=== PATIENT | female | born 1995 | race Two or more races ===

== ENCOUNTER 2022-01-25 19:03 | Outpatient (CLI) | payer OTHER ==
[2022-01-26] MEDS ORDERED: PRENATAL CAPLE1 EAC1 PO (22:24)
== END 2022-01-25 19:30 | disposition home or self-care (01) ==
LOC: NST 19:03
PROVIDERS: ATTEND Obstetrics & Gynecology
DX: Z34.83 Encounter for supervision of other normal pregnancy, third trimester (principal)

== ENCOUNTER 2022-01-26 21:52 | Inpatient (IN) | payer OTHER ==
[~2022-01-26] VITALS: Ht 154.9 cm; Wt 72.6 kg
[2022-01-26] MEDS ORDERED: PRENATAL CAPLE1 EAC1 PO (22:24)
== END 2022-01-30 14:27 | disposition home or self-care (01) | DRG 788 ==
LOC: LDR 21:52 → OB/GYN 21:52
PROVIDERS: ADMIT Obstetrics & Gynecology; ATTEND Obstetrics & Gynecology
PROC: 4A1HXCZ Monitoring of Products of Conception, Cardiac Rate, External Approach (ICD-10-PCS; 2022-01-26)
PROC: 10D00Z1 Extraction of Products of Conception, Low, Open Approach (ICD-10-PCS; principal; 2022-01-27 03:30)
DX: O62.0 Primary inadequate contractions (principal); Z3A.38 38 weeks gestation of pregnancy; Z37.0 Single live birth; Z20.822 Contact with and (suspected) exposure to COVID-19